=== PATIENT | male | born 1960 | race Caucasian/White ===

== ENCOUNTER → 2017-05-15 | Outpatient (CLI) | payer OTHER, BC | LOC: LAB 12:05 | PROVIDERS: ATTEND Nurse Practitioner Acute Care | DX: R19.7 Diarrhea, unspecified (principal) | CPT/HCPCS: 82272; 87045; 87177; 87205; 87493; 89055 ==

== ENCOUNTER 2019-03-19 08:44 | Emergency (ER) | payer OTHER, BC ==
[2019-03-19 08:54] VITALS: BP 127/66
[2019-03-19] MEDS ORDERED: IBUPROFEN 600 MG TABLET PO ONE (10:03)
[2019-03-19] MEDS ORDERED: SULFAMETHOXAZOLE/TRIMETHOPRIM 800-160 MG TABLET PO ONE (10:09)
[2019-03-19] MEDS ORDERED: CEPHALEXIN 500 MG CAPSULE PO ONE (10:09)
--- NOTE | 2019-03-19 10:09 | ER Document Report ---
ED Skin Rash/Insect Bite/Abscs - General Chief Complaint: Neck Swelling Stated Complaint: POSSIBLE INSECT BITE Time Seen by Provider: 03/19/19 09:56 Primary Care Provider: GASPER ANDERSON NP [Primary Care Provider] - Follow up as needed Mode of Arrival: Ambulatory Information source: Patient TRAVEL OUTSIDE OF THE [place] IN LAST 30 DAYS: No - HPI Patient complains to provider of: Tender/swollen area Notes: Patient here with complaints of left posterior neck pain. 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 He was carrying some pipe from the store room when he felt like he was bit by something on the left posterior neck 2 days ago. Since that time the area has become more swollen, more tender. He had difficulty sleeping last night due to pain. No fevers. He denies a history of diabetes or other chronic illnesses. He takes no daily medications. He denies any numbness, tingling, weakness. No severe headache. No unilateral numbness, Anastacia, weakness. No blurred or loss vision. No chest pain or shortness of breath. Pain is constant, moderate, worse with palpation, better with not touching the area. He denies any other complaints at this time. - Related Data Allergies/Adverse Reactions: No Known Allergies Allergy (Verified 03/19/19 08:45) Past Medical History - Social History Smoking Status: Unknown if Ever Smoked Family History: Reviewed & Not Pertinent - Past Medical History Cardiac Medical History: Denies: Hx Coronary Artery Disease, Hx Heart Attack, Hx Hypertension Pulmonary Medical History: Denies: Hx Asthma, Hx Bronchitis, Hx COPD, Hx Pneumonia Neurological Medical History: Denies: Hx Cerebrovascular Accident, Hx Seizures Musculoskeletal Medical History: Denies Hx Arthritis Past Surgical History: Reports: Hx Oral Surgery - Immunizations Hx Diphtheria, Pertussis, Tetanus Vaccination: Yes Review of Systems - Review of Systems -: Yes All other systems reviewed and negative Physical Exam - Vital signs Vitals: Temp Pulse Resp BP Pulse Ox 98.7 F 64 18 127/66 H 97 03/19/19 08:52 03/19/19 08:52 03/19/19 08:52 03/19/19 08:52 03/19/19 08:52 - Notes Notes: GENERAL: alert, cooperative, nontoxic, no distress. HEAD: normocephalic, atraumatic EYES: conjunctiva pink without discharge, no external redness or swelling. EARS: no external swelling, no external redness NOSE: atraumatic, no external swelling MOUTH/THROAT: mucous membranes moist and pink NECK: soft, supple, full range of motion, no meningismus. CHEST: no distress, lungs clear and equal throughout. No wheezing, rales, rhonchi. CARDIAC: regular rate and rhythm, no murmur, normal capillary refill, normal pulses. BACK: full range of motion, no CVA tenderness. EXTREMITIES: full range of motion of all extremities. No redness, no swelling. NEURO: alert and oriented 3, no focal deficits, full range of motion of all extremities. PYSCH: appropriate mood, affect. Patient is cooperative. SKIN: pink, warm, dry, no rash. Tender indurated area to the left posterior neck. Minimal surrounding redness. There is no fluctuance. No drainage. Course - Re-evaluation Re-evalutation: 03/19/19 10:05 Patient nontoxic-appearing with stable vitals. Patient here with complaints of left posterior neck pain. The patient was bit by something while carrying pipe at work 2 days ago and has developed a swollen tender indurated area to the left posterior neck. Seems to have an early abscess formation. There is no fluctuance. I discussed potential I&D at this time, the patient declined and states that he would prefer to try antibiotics and warm compresses. Do believe that this is reasonable as there is no significant fluctuance and I am not completely convinced that I would get pus from this lesion at this time. Patient will be discharged home on Bactrim, Keflex. Warm compresses. I will give him a small supply of [place] to take at night for pain. He was given a dose of ibuprofen here in the ER. He is instructed to apply warm compresses. Follow-up if not improving in the next 2 days, follow-up sooner for worsening pain, high fever, spreading redness, increasing swelling, or for any further concerns. Patient has no signs of airway compromise at this time. No other signs of significant serious systemic illness. The patient's emergency department workup and current diagnosis were explained to the patient and or family. Follow-up instructions were provided. Medications if prescribed were discussed. Instructions for when to return to the emergency department including specific worrisome symptoms were discussed with the patient and/or family. - Vital Signs Vital signs: Temp Pulse Resp BP Pulse Ox 98.7 F 64 18 127/66 H 97 03/19/19 08:52 03/19/19 08:52 03/19/19 08:52 03/19/19 08:52 03/19/19 08:52 Discharge - Discharge Clinical Impression: Abscess Condition: Stable Disposition: HOME, SELF-CARE Instructions: Abscess ([facility]), Cephalexin ([facility]), Trimethoprim-Sulfa ([facility]), Oral Narcotic Medication ([facility]) Additional Instructions: Take medication as prescribed. Apply warm compresses to the sore area. Take ibuprofen throughout the day to help with pain. Follow-up if not improved in the next 2 days, sooner for worsening pain, fever, swelling, redness, drainage, persistent vomiting, or for any further concerns. Prescriptions: Cephalexin Monohydrate [Keflex 500 mg Capsule] 500 mg PO Q6H #40 capsule Hydrocodone/Acetaminophen [[place] 5-325 mg Tablet] 2 tab PO Q6H PRN #10 tab PRN Reason: Sulfamethoxazole/Trimethoprim [Bactrim Ds Tablet] 1 each PO BID #20 tablet Referrals: GASPER ANDERSON, JACQUIE [Primary Care Provider] - Follow up as needed
== END 2019-03-19 10:16 | disposition home or self-care (01) ==
LOC: ER 08:44
DX: L02.91 Cutaneous abscess, unspecified (principal); M54.2 Cervicalgia
CPT/HCPCS: 99283

== ENCOUNTER 2019-05-26 10:35 | Day surgery (SDC) | payer OTHER, BC ==
[~2019-05-26 10:35] MED LIST: BUPIVACAINE HCL 0.25% /EPINEPHRINE INJ/PF 30 ML SDV ONE; CEFAZOLIN 1 GM/D5W RTU 1 GM/50 ML RTUPB IV ONE; CEFAZOLIN 1 GM/D5W RTU 1 GM/50 ML RTUPB IV PRN
[2019-05-26] MEDS ORDERED: MIDAZOLAM 2 MG/2 ML INJ ONE ×2 (12:51→13:16)
[2019-05-26] MEDS ORDERED: FENTANYL CITRATE INJ/PF 100 MCG/2 ML AMPUL ONE (12:51)
[2019-05-26] MEDS ORDERED: PROPOFOL INJ 200 MG/20 ML VIAL IV ONE (12:52)
[2019-05-26] MEDS ORDERED: BUPIVACAINE HCL 0.25% /EPINEPHRINE INJ/PF 30 ML SDV ONE (12:57)
[2019-05-26] MEDS ORDERED: OXYCODONE-ACETAMINOPHEN 5-325 MG TABLET PO PRN (14:16)
--- NOTE | 2019-05-26 14:16 | Operative Report ---
Nonrecallable Operative Report DATE OF SURGERY: 05/26/19 PREOPERATIVE DIAGNOSIS: Sebaceous cyst neck POSTOPERATIVE DIAGNOSIS: Sebaceous cyst neck OPERATION: Excision of sebaceous cyst neck SURGEON: SHAMAR BAKER ANESTHESIA: Moderate Sedation TISSUE REMOVED OR ALTERED: Skin and subcutaneous tissue posterior neck COMPLICATIONS: None ESTIMATED BLOOD LOSS: 10 cc INTRAOPERATIVE FINDINGS: Sebaceous cyst x3 posterior neck PROCEDURE: She was brought to the operating week in stable condition placed on the operating table in a left lateral decubitus position given IV sedation Posterior neck was prepped and draped in usual sterile fashion for the procedure. After opiate timeout and site verification her neck in the midline anesthetized with 1% percent lidocaine with epinephrine Patient had 3 posterior cysts in the cervical skin that were palpable and close enough to each other we could excise them all with one incision. A transverse elliptical incision was made approximately 4 cm long by 3 cm wide to encompassing all 3 cyst. Ultimately a 1 cm margin was made from the most center of the 3 cysts. Widest margin was approximately 0.5 cm Using a 15 blade and the skin was incised down the subcutaneous tissue down to the subcutaneous fat we encircled the cyst with a sharp dissection using the 15 blade and the section of skin and subtenons tissue with the cyst were excised. Was controlled with Bovie cautery. The layered closure of the inner layer of the site deep subcutaneous tissue was reapproximated with 3-0 Vicryl and then the skin was reapproximated with interrupted 3-0 Prolene. Was encouraged Chucho drain in the depths of the wound and brought out through the edge of the skin closure and fixed it there with 1 of the 3-0 Prolene sutures. Sterile dressing was applied to complete the procedure Estimated blood loss was approximately 10 cc sponge needle counts correct x2 the patient was transferred to recovery in stable condition no complications
--- NOTE | 2019-05-26 14:20 | Discharge Summary ---
Discharge Summary (SDC) - Discharge Final Diagnosis: Subcutaneous sebaceous cyst posterior neck Date of Surgery: 05/26/19 Condition: Good Forms: ASU Anesthesia D/C Instruction, Discharge POC-Surgical Service Referrals: SHAMAR BAKER MD [ACTIVE STAFF] - Discharge Diet: As Tolerated Discharge Activity: Activity As Tolerated Report the Following to Your Physician Immediately: Shortness of Breath, Nausea, Vomiting, Increase in Pain - Please change the gauze dressing once a day and more if necessary for oozing leave the Chucho drain in place okay to shower
[2019-05-26 15:04] VITALS: BP 125/85
--- NOTE | 2019-05-26 18:47 | EKG REPORT ---
SEVERITY:- ABNORMAL ECG - SINUS RHYTHM FIRST DEGREE AV BLOCK LEFT BUNDLE BRANCH BLOCK : Confirmed by: Elliott Lowery MD 26-May-2019 18:47:14
== END 2019-05-26 15:00 | disposition home or self-care (01) ==
LOC: OROUT 10:35
PROVIDERS: ATTEND Surgery
DX: L02.11 Cutaneous abscess of neck (principal); F17.210 Nicotine dependence, cigarettes, uncomplicated; G47.30 Sleep apnea, unspecified
CPT/HCPCS: 88305 ×2; 93005; 93010; 21552; J2250; J3490; J0690; J3010; J2704; 300

== ENCOUNTER 2020-01-12 15:14 | Emergency (ER) | payer OTHER, BC ==
[2020-01-12] MEDS ORDERED: IBUPROFEN 800 MG TABLET PO ONE (15:43)
[2020-01-12] MEDS ORDERED: IPRATROPIUM/ALBUTEROL 0.5-2.5 MG/3 ML AMPUL NEB ONE (15:43)
--- NOTE | 2020-01-12 15:49 | ER Document Report ---
HPI - HPI Patient complains to provider of: fever, cough Time Seen by Provider: 01/12/20 15:39 Onset: Other - 5 days Onset/Duration: Persistent Quality of pain: Achy Pain Level: 1 Context: Patient presents with cough for the past 5 days. Patient states that he had chills yesterday and was not aware that he had a fever although has a temperature here today. Patient does complain of congestion. No nausea vomiting or diarrhea. Associated Symptoms: Nonproductive cough, Fever, Rhinnorhea, Sore throat. denies: Earache, Headache, Nausea, Vomiting Exacerbated by: Denies Relieved by: Denies Similar symptoms previously: No Recently seen / treated by doctor: No - ROS ROS below otherwise negative: Yes Systems Reviewed and Negative: Yes All other systems reviewed and negative - CONSTITUTIONAL Constitutional: REPORTS: Fever, Chills - EENT EENT: REPORTS: Sore Throat, Nasal Drainage-Clear, Congestion - NEURO Neurology: DENIES: Headache - CARDIOVASCULAR Cardiovascular: DENIES: Chest pain - RESPIRATORY Respiratory: REPORTS: Coughing. DENIES: Trouble Breathing - GASTROINTESTINAL Gastrointestinal: DENIES: Abdominal Pain, Patient vomiting, Diarrhea - MUSCULOSKELETAL Musculoskeletal: DENIES: Back Pain - DERM Skin Color: Normal Skin Problems: None Past Medical History - General Information source: Patient - Social History Smoking Status: Former Smoker Frequency of alcohol use: None Drug Abuse: None Occupation: Maintenance Lives with: Spouse/Significant other Family History: Reviewed & Not Pertinent Patient has suicidal ideation: No Patient has homicidal ideation: No - Medical History Medical History: Negative Neurological Medical History: Denies: Hx Cerebrovascular Accident, Hx Seizures Renal/ Medical History: Denies: Hx Peritoneal Dialysis Musculoskeletal Medical History: Denies Hx Arthritis Past Surgical History: Reports: Hx Oral Surgery, Hx Orthopedic Surgery - knee scope - Immunizations Hx Diphtheria, Pertussis, Tetanus Vaccination: Yes Vertical Provider Document - CONSTITUTIONAL Agree With Documented VS: Yes Exam Limitations: No Limitations General Appearance: WD/WN, No Apparent Distress - INFECTION CONTROL TRAVEL OUTSIDE OF THE [place] IN LAST 30 DAYS: No - HEENT HEENT: Atraumatic, Normocephalic, Pharyngeal Tenderness, Pharyngeal Erythema. negative: Pharyngeal Exudate, Tympanic Membrane Red, Tympanic Membrane Bulging Notes: Clear rhinorrhea - NECK Neck: Normal Inspection, Supple. negative: Lymphadenopathy-Left, Lymphadenopathy-Right - RESPIRATORY Respiratory: No Respiratory Distress, Chest Non-Tender, Wheezing - CARDIOVASCULAR Cardiovascular: Regular Rate, Regular Rhythm, No Murmur - GI/ABDOMEN Gastrointestinal: Abdomen Soft - BACK Back: Normal Inspection - MUSCULOSKELETAL/EXTREMETIES Musculoskeletal/Extremeties: MAEW - NEURO Level of Consciousness: Awake, Alert, Appropriate Motor/Sensory: No Motor Deficit, No Sensory Deficit - DERM Integumentary: Warm, Dry, No Rash Course - Re-evaluation Re-evalutation: 01/12/20 16:37 Patient with negative strep test and negative influenza test. Chest x-ray reviewed, no concern for pneumonia or pneumothorax. Respirations even unlabored. Patient nontoxic in appearance. Patient with what seems to be flulike symptoms although has had symptoms for 5 days now would be outside the treatment window. Discussed worsening signs or symptoms that patient should return immediately for. Patient verbalized understanding and is agreeable with discharge plan of care at this time. 01/12/20 16:51 Patient does continue with fever although it has not very long since his dose of ibuprofen. Discussed with patient importance of taking Tylenol and ibuprofen [id number] to help manage his fever symptoms. - Vital Signs Vital signs: Temp Pulse Resp BP Pulse Ox 102.8 F H 101 H 126/77 H 95 01/12/20 15:39 01/12/20 15:28 01/12/20 15:39 01/12/20 15:28 - Laboratory Laboratory results interpreted by me: 01/12/20 16:37 Labs- Entire Visit 01/12/20 01/12/20 15:50 15:50 Influenza A (Rapid) NEGATIVE Influenza B (Rapid) NEGATIVE Group A Strep Rapid NEGATIVE - Diagnostic Test Radiology reviewed: Reports reviewed Discharge - Discharge Clinical Impression: Bronchospasm Fever Qualifiers: Fever type: unspecified Qualified Code(s): R50.9 - Fever, unspecified Upper respiratory infection Qualifiers: URI type: unspecified URI Qualified Code(s): J06.9 - Acute upper respiratory infection, unspecified Condition: Stable Disposition: HOME, SELF-CARE Instructions: Acetaminophen, Bronchospasm ([facility]), Fever ([facility]), Inhaled Bronc hodilators ([facility]), Steroid Medication, Upper Respiratory Illness ([facility]) Additional Instructions: Return immediately for any new or worsening symptoms Followup with your primary care provider, call tomorrow to make a followup appointment Throat culture is pending, we will call if you need any different treatment Prescriptions: Prednisone [Deltasone 20 mg Tablet] 3 tab PO DAILY 4 Days #12 tablet Inhaler,Assist Device,Accesory [Optichamber] 1 each MC Q4 PRN #1 each PRN Reason: Albuterol Sulfate [Proair Hfa Inhalation Aerosol 8.5 gm Mdi] 2 puff IH Q4 PRN #1 mdi PRN Reason: Benzonatate [Tessalon Perles 100 mg Capsule] 100 mg PO ASDIR PRN #30 capsule PRN Reason: Forms: Return to Work [facility]errals[facility] [[facility] - 01/13/20
--- NOTE | 2020-01-12 16:10 | RADIOLOGY REPORT (SQ) ---
EXAM DESCRIPTION: CHEST 2 VIEWS COMPLETED DATE/TIME: 01/12/2020 4:01 pm REASON FOR STUDY: fever, cough COMPARISON: None. EXAM PARAMETERS: NUMBER OF VIEWS: two views TECHNIQUE: Digital Frontal and Lateral radiographic views of the chest acquired. RADIATION DOSE: NA LIMITATIONS: none FINDINGS: LUNGS AND PLEURA: No opacities, masses or pneumothorax. No pleural effusion. MEDIASTINUM AND HILAR STRUCTURES: No masses or contour abnormalities. HEART AND VASCULAR STRUCTURES: Heart normal size. No evidence for failure. BONES: No acute findings. Degenerative changes in the spine. HARDWARE: None in the chest. OTHER: No other significant finding. IMPRESSION: NO ACUTE RADIOGRAPHIC FINDING IN THE CHEST. TECHNICAL DOCUMENTATION: JOB ID: [id number] 2010 [employer]- All Rights Reserved Reading location - IP/workstation name: [email or web address]
[2020-01-12 16:25] LABS: A TYPE INFLUENZA AG NEGATIVE (NEGATIVE); B INFLUENZA AG NEGATIVE (NEGATIVE)
[2020-01-12] MEDS ORDERED: PREDNISONE 20 MG TABLET PO ONE (16:34)
[2020-01-12 16:46] VITALS: BP 140/98
== END 2020-01-12 17:00 | disposition home or self-care (01) ==
LOC: ER 15:14
DX: J06.9 Acute upper respiratory infection, unspecified (principal); J98.01 Acute bronchospasm; R05 Cough; R50.9 Fever, unspecified; J34.89 Other specified disorders of nose and nasal sinuses; J02.9 Acute pharyngitis, unspecified; Z87.891 Personal history of nicotine dependence
CPT/HCPCS: 94640; 99283; 87070; 87880; 87804; 71046; J7512; J7620

== ENCOUNTER → 2020-09-12 | Outpatient (CLI) | payer BC ==
[2020-09-12 11:33] VITALS: BP 141/86
--- NOTE | 2020-09-12 11:33 | ER RDC ASSESSMENT REPORT ---
Intake - In the Last 14 days Have you traveled outside [place]?: No Have you been in close contact with someone CONFIRMED: Yes Worked in Healthcare?: Yes --Where?: Works at maintenance department at [employer] - Symptoms Subjective Fever(Wasta feverish): No Chills: No Muscule Aches: No Runny Nose: Yes Sore Throat: No Cough (New or worsening chronic cough): No Shortness of breath: No Nausea or Vomiting: Yes Headache: Yes Abdominal Pain: No Diarrhea(3 or more loose stools in last 24 hours): Yes - Do you have any of the following Chronic lung disease: Asthma or emphysema or COPD: No Cystic Fibrosis: No Diabetes: No High Blood Pressure: No Cardiovascular Disease: No Chronic Kidney Disease: No Chronic Liver Disease: No Chronic blood disorder like Sickle Cell Disease: No Weak immune system due to disease or medication: No Neurologic condition that limits movement: No Developmental delay - Moderate to Severe: No Recent (within past 2 weeks) or current : No Morbid Obesity (>100 pounds over ideal weight): No Obesity Comment: Height 6 feet 2 inches weight 290 pounds - Objective Temperature: 98.0 F Pulse Rate: 64 Respiratory Rate: 16 Blood Pressure: 141/86 O2 Sat by Pulse Oximetry: 98 Objective: Given above, testing performed: If Testing Performed: Test Specimen Type Sent to General - General Information source: Patient Notes: Patient here at 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 Patient reports having symptoms of nausea headache congestion and fatigue along with diarrhea that started on Saturday. Patient follows with Dr. Meyer his PCP. - Related Data Allergies/Adverse Reactions: No Known Allergies Allergy (Verified 01/12/20 15:37) Past Medical History - General Information source: Patient - Social History Smoking Status: Current Every Day Smoker - smokes 1/2 pack per day Smoking Education Provided: Yes - quit smoking Family History: Reviewed & Not Pertinent - Past Medical History Cardiac Medical History: Denies: Hx Coronary Artery Disease, Hx Heart Attack, Hx Hypertension Pulmonary Medical History: Denies: Hx Asthma, Hx Bronchitis, Hx COPD, Hx Pneumonia Neurological Medical History: Denies: Hx Cerebrovascular Accident, Hx Seizures Renal/ Medical History: Denies: Hx Peritoneal Dialysis Musculoskeletal Medical History: Denies Hx Arthritis Past Surgical History: Reports: Hx Oral Surgery, Hx Orthopedic Surgery - knee scope Physical Exam - General General appearance: Appears well, Alert In distress: None Notes: PHYSICAL EXAMINATION: GENERAL: Well-appearing and in no acute distress. HEAD: Atraumatic, normocephalic. EYES: sclera anicteric, conjunctiva are normal. ENT: nares patent. Moist mucous membranes. NECK: Normal range of motion, supple without lymphadenopathy LUNGS: CTAB and equal. No wheezes rales or rhonchi. Respirations even and unlabored. Lung sounds clear. HEART: Regular rate and rhythm without murmurs ABDOMEN: Soft, nontender, normal bowel sounds, no guarding. EXTREMITIES: Normal range of motion, no pitting edema. No cyanosis. NEUROLOGICAL: Cranial nerves grossly intact. Normal speech. Normal gait. PSYCH: Normal mood, normal affect. SKIN: Warm, Dry, normal turgor, no rashes or lesions noted Diagnostic Results Laboratory Results: Patient informed of negative rapid strep and negative rapid flu results. Pending strep culture. Pending Covid testing results. Patient provided instructions regarding Covid to include: As a person under investigation for Covid 19, the [place] department of Health and Human Services, division of public health advises you to adhere to the following guidance until your test results are reported to you. If your test result is positive, you will receive additional information from your provider and your local health department at that time. Remain at home until you are cleared by the health provider or public health authorities. Keep a log of visitors to your home, notify any visitors to your home of your isolation status. If you plan to move to a new address or leave the [facility], notify the local health department in your County. Call your doctor or seek care if you have an urgent medical need. Before seeking medical care, call ahead to get instructions from the provider before arriving at the medical office clinic or hospital. Notify them that you are being tested for the virus that causes Covid 19 so that arrangements can be made, as necessary, to prevent transmission to others in the healthcare setting. Next, notify the local health department in your county. If a medical emergency arises and you need to call 911, inform the first responders that you are being tested for the virus that causes Covid 19. Next, notify the local health department in your county. Patient Education/Counseling Counseling/Education: Patient presents with upper respiratory symptoms worrisome for possible Covid 19. Patient does not have emergency worring symptoms such as difficulty breathing, shortness of breath, chest pain, pressure, confusion or cyanosis. Patient appears suitable for discharge. Patient instructed to follow-up with PCP Dr. Meyer today. To ED for persistent or worsening symptoms. Patient's vital signs are stable and patient is nontoxic in appearance. Good return precautions have been discussed with patient, patient verbalized understanding and is agreeable with discharge plan of care at this time. RDC Discharge - Discharge Condition: Stable Disposition: Home; Selfcare
[2020-09-12 12:45] LABS: A TYPE INFLUENZA AG NEGATIVE (NEGATIVE); B INFLUENZA AG NEGATIVE (NEGATIVE)
== END ==
LOC: RDC 11:01
PROVIDERS: ATTEND Nurse Practitioner Family
DX: Z20.828 Contact with and (suspected) exposure to other viral communicable diseases (principal); R09.89 Other specified symptoms and signs involving the circulatory and respiratory systems; R11.2 Nausea with vomiting, unspecified; F17.210 Nicotine dependence, cigarettes, uncomplicated
CPT/HCPCS: 87070; 87880; 87804; 99201; 99211; U0003; C9803; 87635

== ENCOUNTER → 2020-11-09 | Outpatient (CLI) | payer BC ==
[~2020-11-09] MED LIST changes: -BUPIVACAINE HCL 0.25% /EPINEPHRINE INJ/PF 30 ML SDV ONE; -CEFAZOLIN 1 GM/D5W RTU 1 GM/50 ML RTUPB IV ONE; -CEFAZOLIN 1 GM/D5W RTU 1 GM/50 ML RTUPB IV PRN; +COVID-19 VACCINE (PFIZER)/PF 30 MCG/0.3 ML VIAL IM ONE; +EPINEPHRINE INJ/PF 1 MG/1 ML AMPULE IM PRN
== END ==
LOC: EMPHEALTH 14:21
PROVIDERS: ATTEND Internal Medicine
DX: Z23 Encounter for immunization (principal)
CPT/HCPCS: 91300

== ENCOUNTER → 2020-11-30 | Outpatient (CLI) | payer BC | LOC: EMPHEALTH 14:09 | PROVIDERS: ATTEND Internal Medicine | DX: Z23 Encounter for immunization (principal) | CPT/HCPCS: 91300 ==